=== PATIENT | male | born 1955 | race Hispanic/Latino ===

== ENCOUNTER → 2022-03-28 | Outpatient (CLI) | payer OTHER | END | disposition home or self-care (01) | LOC: SLP 20:11 | PROVIDERS: ATTEND Internal Medicine Cardiovascular Disease | DX: G47.33 Obstructive sleep apnea (adult) (pediatric) (principal); G47.61 Periodic limb movement disorder | CPT/HCPCS: 95810 ==

== ENCOUNTER → 2022-04-04 | Outpatient (CLI) | payer OTHER | END | disposition home or self-care (01) | LOC: SLP 20:17 | PROVIDERS: ATTEND Internal Medicine Cardiovascular Disease | DX: G47.33 Obstructive sleep apnea (adult) (pediatric) (principal); G47.61 Periodic limb movement disorder | CPT/HCPCS: 95811 ==

== ENCOUNTER → 2022-12-24 | Outpatient (CLI) | payer OTHER | END | disposition home or self-care (01) | LOC: RAH 08:35 | PROVIDERS: ATTEND Internal Medicine Cardiovascular Disease | DX: I35.0 Nonrheumatic aortic (valve) stenosis (principal); I25.10 Atherosclerotic heart disease of native coronary artery without angina pectoris; R00.0 Tachycardia, unspecified; I10 Essential (primary) hypertension; E78.00 Pure hypercholesterolemia, unspecified; G47.33 Obstructive sleep apnea (adult) (pediatric); Z79.82 Long term (current) use of aspirin; Z79.899 Other long term (current) drug therapy | CPT/HCPCS: 78452; 96374; 93017; A9500 ×2 ==

== ENCOUNTER → 2023-07-28 | Outpatient (CLI) | payer OTHER | END | disposition home or self-care (01) | LOC: RAH 11:44 | PROVIDERS: ATTEND Internal Medicine Cardiovascular Disease | DX: R22.42 Localized swelling, mass and lump, left lower limb (principal); I82.409 Acute embolism and thrombosis of unspecified deep veins of unspecified lower extremity; I35.0 Nonrheumatic aortic (valve) stenosis; I25.10 Atherosclerotic heart disease of native coronary artery without angina pectoris; I10 Essential (primary) hypertension; M79.662 Pain in left lower leg; Z79.899 Other long term (current) drug therapy | CPT/HCPCS: 93971 ==

== ENCOUNTER 2025-02-22 07:35 | Observation (INO) | payer OTHER ==
[2025-02-20 10:54] LABS: IMMATURE GRANULOCYTE ABSOLUTE 0.01 K/uL (0-1); NUCLEATED RED BLOOD CELLS 0.0 % (0.0-0.19); PLATELET COUNT (AUTO) 181 K/uL (130-400); RED BLOOD CELL COUNT(AUTO) 5.03 MIL/uL (4.50-6.20); RED CELL DISTRIBUTION WIDTH 12.8 % (11.0-15.5); WHITE BLOOD COUNT (AUTO) 5.9 K/uL (4.8-10.8)
--- NOTE | 2025-02-20 10:57 | EKG ---
[facility] Test Date: 2025-02-20 Test Time: 10:43:11 Pat Name: SUZI CHIU Department: [facility] Room: Gender: Tape Sewer: [id number] : 1955 Requested By: ALESSIO HUTSON Order Number: [id number] Reading MD: Sebastian Hoskins Measurements Intervals [place] Rate: 65 P: 58 AK: 210 QRS: 56 QRSD: 94 T: 45 QT: 385 QTc: 400 Interpretive Statements Sinus rhythm No previous ECG available for comparison Electronically Signed On 02-20-2025 18:38:46 CDT by Sebastian Hoskins Please click the below link to view image of tracing.
[2025-02-20 11:03] LABS: CREATININE 1.6 mg/dL (0.5-1.3); GLOMERULAR FILTR. RATE CALC 46.0 mL/min (>90); GLUCOSE,RANDOM 86.0 mg/dL (70-105); SODIUM SERUM 137.0 mmol/L (136-145); UREA NITROGEN, BLOOD 52.0 mg/dL (7-18)
[2025-02-20 11:21] VITALS: BP 109/64; PULSE 65; RESP 13; TEMP 97.2
[2025-02-22] VITALS (24 sets, daily range): BP systolic 109–128; BP diastolic 58–79; PULSE 76–104; RESP 14–20; TEMP 97.4–98.3
[~2025-02-22] VITALS: Ht 167.6 cm; Wt 83.9 kg
[~2025-02-22 07:35] MED LIST: AMLO-257 PO; ASPI-1197 PO; CHOL200026 PO; GLYCOPYRROLATE 0.2 MG/ML 5 ML VIAL ONE; LABE100T7 PO; LIDOCAINE PF 100MG/5ML (2%) SYRINGE 5ML ONE; MELO-108 PO; MIDAZOLAM HCL 1 MG/ML 2ML VIAL ONE; NEOSTIGMINE METHYLSULFATE 1MG/ML IV ONE; OLME40TA18 PO; SPIR25TA6 PO; SUCCINYLCHOLINE CHLORIDE 20 MG/ML 10 ML VIAL ONE
[2025-02-22 09:06] LABS: INR 1.12 (0.85-1.15)
[2025-02-22] MEDS: LACTATED RINGERS 1000ML 1,000 ML IV ONE (10:13)
[2025-02-22] MEDS ORDERED: NOREPINEPHRINE BITARTRATE 1 MG/1 ML ML IV ONE (10:52)
[2025-02-22] MEDS ORDERED: ATOR40TA71 PO (11:15)
[2025-02-22] MEDS ORDERED: ESOM40CA66 PO (11:15)
--- NOTE | 2025-02-22 13:53 | OP ---
Operative Note: DATE OF PROCEDURE: 02/22/25 SURGEON: ALESSIO HUTSON MD MUNICIPAL ENGINEER: [Please review operative record] ANESTHESIA: [General and local] ANESTHESIOLOGIST/DIRECTOR FINANCIAL ANALYSIS: [Please review operative record] PREOPERATIVE DIAGNOSIS: [Diaphragmatic hernia, GERD] POSTOPERATIVE DIAGNOSIS: [Same] SYNOPSIS: [Large hiatal hernia containing incarcerated cardia fundus, successfully reduced, primarily repair. Reinforced with mesh. Partial anterior fundoplication performed.] PROCEDURE: [1. Robotic assisted laparoscopic hiatal hernia repair mesh reinforcement. 2. Anterior partial fundoplication. 3. Intraoperative EGD] ESTIMATED BLOOD LOSS: [15 cc] INDICATIONS: [Patient is a 69-year-old male with chronic heartburn who was found to have large hiatal hernia on EGD. Confirmed on upper GI. Patient also with concerns of esophageal mucosal changes however Barretts no biopsy-proven. Patient unable to wean off medical therapy for GERD. Recommendation was given for surgical repair with hiatal hernia repair and fundoplication. Risks, benefits, alternatives were discussed with the patient. Patient had all his que stions answered. Patient agreed to proceed with surgical procedure] DESCRIPTION OF PROCEDURE: [After proper consent was obtained, the patient was transferred to the operating room and placed in supine position on the operating table. SCDs were placed, preop antibiotics were given. Patient underwent induction of general anesthesia endotracheal intubation. Patient was then prep ped and draped in usual sterile fashion. Time-out was performed. Through a left subcostal incision, Veress needle was inserted into the peritoneal cavity. Insufflation was allowed to 12 mmHg. Through a supraumbilical 8 mm incision, trocar and laparoscope were inserted into the peritoneal cavity using Optiview. Rest of my trocars were placed under direct visualization. Through a 5 mm incision, Pam liver retractor was placed in order to retract the left lobe of the liver anteriorly. Patient was positioned in the reverse Trendelenburg at 20. At this time the the Rosaline robot was docked. Insufflation was dropped to 10 mmHg. Upon evaluation of the hiatus, there was evidence of a large defect, about 5 cm containing incarcerated cardia and fundus. The gastrohepatic ligament was identified and incised using the vessel sealer in a avascular plane. This dissection was carried anteromedially onto the phrenoesophageal membrane. The phrenoesophageal membrane was then divided on the anterior aspect of the hiatal orifice. The right mary was then followed and dissected along the inner side. A plane was found between the right esophageal wall and the mary and this was followed. With this we then able to follow and identified the left mary posterior to the esophagus. Attention was then turned to the left anterolateral aspect of the esophagus. At this time the left mary was identified from above. The dissection plane between the mary and the left aspect of the esophagus was freed. This allowed to completely free the peritoneum around the hiatus. We then focused on dissecting the intra mediastinal portion of the esophagus into the hiatal hernia was reduced and there was 3 cm of intra-abdominal esophagus. EGD was then placed through the mouth into the esophagus and into the stomach. With the endoscope in place, we then focused on creating our crural plasty. Using two 0 V lock nonabsorbable suture in a running fashion we closed the crura posterior to the esophagus, onto only one instrument was able to pass through the hiatus. In order to reinforce this repair we then placed a Phasix ST 8 cm mesh cut in a horseshoe fashion. The mesh was sutured in place using 3-0 V lock absorbable suture in a running fashion in addition to a couple of simple interrupted silk stitches. We then focused on creating a anterior partial fundoplication. The fundus was grasped from the left aspect passed anterior to the esophagus and suture to the right mary and diaphragm using 2-0 silk in a running fashion. Of note this was performed with the EGD in place. With the EGD in place, leak test was then performed. No signs of leakage, obstruction or active int raluminal bleeding were noted. EGD was then removed. At this time the the Rosaline robot was undocked. Final inspection revealed adequate hemostasis and no concerns for leakage. Counts were correct at the end of the case. Abdomen was then allowed to desuff late. At this time, rest of the incisions were closed with 4-0 Monocryl. Dermabond was applied over the incisions. Patient tolerated the procedure well. Patient was transferred to recovery area in good condition.] ALESSIO HUTSON MD Feb 22, 2025 13:53
[2025-02-22] MEDS ORDERED: ENOXAPARIN SODIUM 30 MG/0.3 ML SQ SCH (14:00)
[2025-02-22] MEDS ORDERED: PROCHLORPERAZINE 10MG/2ML INJ IV PRN (14:00)
[2025-02-22] MEDS ORDERED: HYDROcod/acetaMINOPHEN 7.5/325 MG 15 ML UDCUP PO PRN (14:00)
[2025-02-22] MEDS: FAMOTIDINE 20MG VIAL IV ONE (19:56)
[2025-02-22] MEDS: SUGAMMADEX SODIUM 200 MG/2 ML VIAL IV ONE (19:56)
[2025-02-22] MEDS: FAMOTIDINE 20MG VIAL IV SCH (20:25)
[2025-02-22] MEDS: ENOXAPARIN SODIUM 30 MG/0.3 ML SQ SCH (20:27)
[2025-02-22] MEDS: LACTATED RINGERS 1000ML 1,000 ML IV SCH (20:29)
[2025-02-23] VITALS: BP 119/74; PULSE 96; RESP 17; TEMP 98.1
[2025-02-23 04:00] VITALS: BP 134/70; PULSE 98; RESP 20; TEMP 98.2
[2025-02-23 08:00] VITALS: BP 106/68; PULSE 68; RESP 18; TEMP 98.1
--- NOTE | 2025-02-23 09:48 | NUR ---
DCP:HOME Pt currently lives with his sps Kaylee Guerrier [phone] and sister. Pt does not report any insecurities with food, fci, and/or utilities. Pt does not have any DME, home health, or provider services. Pt states that he is able to complete ADLs independently. PCP is Dr. Pitts and uses [facility] for any RX needs. At [place] pt will go home and family will assist with transportation. Addendum: 02/23/25 at 0951 by JOSUE GARCIA SS Amended: Links added.
[2025-02-23 12:00] VITALS: BP 104/71; PULSE 81; RESP 18; TEMP 98.1
--- NOTE | 2025-02-23 14:00 | NUR ---
Approached patient for PT eval. Pt already ambulating inhalls, denies needs. Pt is getting dressed for DC
--- NOTE | 2025-02-23 14:51 | DS ---
Discharge Summary Hospital Course 69 yo patient with past medical hx for hypertension, hyperlipidemia, GERD, and hiatal hernia who underwent at robotic hiatal hernia repair. His VSS. He has tolerated full liquids without any n/v. BBS are clear. ABdomen is soft and not distended. Active BS present. Incisions are D&I rony with dermabond. Patient reports passing flatus and has had a bm. Home care instructions given with ER warnings. Instructed to keep office appointment in one weeks. Patient verbalized understanding and agreement. DX Hiatal hernia Hypertension Hyperlipidemia GERD SOLANGE BAZAN NP Feb 23, 2025 14:51
== END 2025-02-23 16:15 | disposition home or self-care (01) ==
LOC: DAH 07:35 → DAHIP 07:36 → DAH 07:36 → INTOOBSV 07:36 → 3DH 17:34
PROVIDERS: ADMIT Surgery; ATTEND Surgery
DX: K44.0 Diaphragmatic hernia with obstruction, without gangrene (principal); I10 Essential (primary) hypertension; E78.5 Hyperlipidemia, unspecified; K21.9 Gastro-esophageal reflux disease without esophagitis; R79.1 Abnormal coagulation profile
CPT/HCPCS: 80048; 85025; 86850; 86900; 86901; 36415 ×2; 93005; 43282; 96374; 96372 ×2; 85610; 85730; 43235; A4223 ×2; A4600; G0378 ×3; A6260; A4663; A4215 ×2; J7120; J3490 ×7; J3010 ×3; J1100; J2003; J1650 ×2; J2250; J2704; J2405; J2710; J0665 ×2; J2371; J0690 ×2; C1781; A4930; A4222; A4221; A4216; J0330; J1308